=== PATIENT | male | born 1970 | race Caucasian/White ===

== ENCOUNTER 2017-12-31 13:36 | Emergency (ER) | payer BC, SELFPAY ==
[2017-12-31 13:37] VITALS: BP 127/89; PULSE 65; RESP 17; TEMP 37.1; O2SAT 95; BMI 29.2
[2017-12-31 13:52] VITALS: BP 129/81; PULSE 62; RESP 18; TEMP 36.8; O2SAT 97
--- NOTE | 2017-12-31 13:55 | ED.VISSUMM ---
- ER Visit Summary Date of Service: 12/31/17 Chief Complaint: [] Left postauricular nodule since Monday causing pain History of Present Illness: The patient is a 47 M [] patient reports he has been healthy has history of migraine headaches he reports on Monday he noticed a small bump as he describes it to the left postauricular region and causes pain primarily when he turns his head looks up and down side to side, he has been taking ibuprofen for the pain the pain went away yesterday then recur today and he came in for evaluation. His migraines are generally well controlled he recalls having prior CTs and MRIs are unremarkable, he has had no recent URI infections ear pain sore throat etc. other than report seasonal type allergy, he has no lumps or bumps or symptoms other than this 1 spot just posterior to the left ear area his review of systems otherwise negative Physical Examination: [] He is in no distress his vital signs are within normal range is afebrile he does have a small papule to the left postauricular area it measures a few millimeters it is tender to palpation is not fluctuant his TMs are clear his head is otherwise unremarkable his nose and throat unremarkable his neck is very supple without other areas of swelling there is no other type of adenopathy his head neck chest abdomen unremarkable upper lower extremities are normal neurologic exam is normal Test Results: [] Emergency Department Course and Treatment: [] Expect the patient this is appears to be a post auricular lymph node that is slightly inflamed it does not appear to represent an abscess she has no history of MRSA or skin infections, I explained that CT scanning are not indicated he agrees and does not wish to have a CT scan I explained to him given all the above the best course of action start him on Toradol Naprosyn Keflex [id number] 24 hours if not improved he will follow-up with his doctor return for change in symptoms and he agrees Treatment Plan: [] Disposition: [] Home stable Impression: [] Post auricular left adenitis This note was generated with [employer] dictation software. It may contain incorrect words, spelling, and punctuation that were not noted in review of the chart prior to signing ED Disposition - Plan for ED Patient: Chief Complaint: Headache Referrals: Care Physician,No Primary [Primary Care Provider] -
--- NOTE | 2017-12-31 13:57 | ED.DEP ---
ED Disposition - Plan for ED Patient: Chief Complaint: Headache Instructions: ED Cervical Adenitis Abx Tx Referrals: Care Physician,No Primary [Primary Care Provider] -
--- NOTE | 2017-12-31 13:59 | ED.DEP ---
ED Disposition - Plan for ED Patient: Chief Complaint: Headache Instructions: ED Cervical Adenitis Abx Tx Prescriptions: Cephalexin [Keflex] 500 mg PO Q6 #40 cap Naproxen [Naprosyn] 500 mg PO BID #20 tab Referrals: Care Physician,No Primary [Primary Care Provider] -
[2017-12-31] MEDS: Ketorolac 60 MG/2 ML Vial IM (14:11)
== END 2017-12-31 14:21 | disposition home or self-care (01) ==
LOC: ED 14:10
PROVIDERS: Emergency Provider Emergency Medicine
DX: L04.8 Acute lymphadenitis of other sites (principal); B96.89 Other specified bacterial agents as the cause of diseases classified elsewhere
CPT/HCPCS: 96372; 99283